=== PATIENT | male | born 2000 | race Hispanic/Latino ===

== ENCOUNTER 2018-02-12 22:59 | Emergency (ER) | payer OTHER, SELFPAY ==
--- OUTSIDE RECORDS SUMMARY | 2018-02-12 23:02 | XMS REPORT ---
:2000 Author Organization e[employer] Care Team Providers Name Role Phone Tenorio, Na Provider Role Unavailable Allergies, Adverse Reactions, Alerts Substance Reaction Event Type N.K.D.A. 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 Problem Acne vulgaris L70.0 Active Problem Blepharitis H01.009 Active Medications Medication Code Code Instructions Start End Status Dosage System Date Date Flonase [facility] 31259632476 50 MCG/ACT Active 1 spray in Nasally Once a each nostril day Ventolin HFA [facility] 60740364644 108 (90 Base) Active 2 puffs as MCG/ACT needed Inhalation every 6 hrs Claritin [facility] 28480654019 10 MG Orally Active 1 tablet Once a day Singulair [facility] 26131785261 10 MG Orally Active 1 tablet in Once a day the evening Doxycycline ND 38711231557 100 MG Orally July Active 1 capsule Monohydrate every 12 hrs 2017 Triamcinolone [facility] 65410059413 0.1 % May Active 1 application Acetonide Externally 06, to affected Twice a day 2017 area Results No Known Results Summary Purpose eClinicalWorks Submission
--- OUTSIDE RECORDS SUMMARY | 2018-02-12 23:02 | XMS REPORT ---
:2000 Author Organization [employer] Care Team Providers Name Role Phone Tenorio, Na Provider Role Unavailable Allergies, Adverse Reactions, Alerts Substance Reaction Event Type N.K.D.A. Info Not Available Non Drug Allergy Problems Problem Type Condition Code Onset Dates Condition Status Assessment Vaccine for human papilloma virus Z23 Active (HPV) types 6, 11, 16, and 18 administered Assessment Encntr for routine child health Z00.129 Active exam w/o abnormal findings Problem Asthma J45.909 Active Problem Abnormal EKG R94.31 Active Problem Allergic rhinitis J30.9 Active Problem Viral warts B07.9 Active Problem Acne vulgaris L70.0 Active Problem Blepharitis H01.009 Active Medications Medication Code Code Instructions Start End Status Dosage System Date Date Claritin [facility] 59728891980 10 MG Orally Dec Active 1 tablet Once a day 2017 Doxycycline ND 53491605824 100 MG Orally Active 1 capsule Hyclate twice a day Singulair ND 16445938214 10 MG Orally Active 1 tablet in Once a day the evening Triamcinolone ND 25069753693 0.1 % Active 1 application Acetonide Externally to affected Twice a day area Flonase ND 13484138061 50 MCG/ACT Active 1 spray in Nasally Once a each nostril day Ventolin HFA ND 50702605642 108 (90 Base) Active 2 puffs as MCG/ACT needed Inhalation every 6 hrs Results No Known Results Immunizations Vaccine Administration Date HPV Sep 29, 2017 Summary Purpose eClinicalWorks Submission
--- OUTSIDE RECORDS SUMMARY | 2018-02-12 23:02 | XMS REPORT ---
:2000 Author Organization [employer] Care Team Providers Name Role Phone Tenorio, Na Provider Role Unavailable Allergies, Adverse Reactions, Alerts Substance Reaction Event Type N.K.D.A. Info Not Available Non Drug Allergy Problems Problem Type Condition Code Onset Dates Condition Status Assessment Vaccine for human papilloma virus Z23 Active (HPV) types 6, 11, 16, and 18 administered Problem Asthma J45.909 Active Problem Abnormal EKG R94.31 Active Problem Allergic rhinitis J30.9 Active Problem Viral warts B07.9 Active Problem Acne vulgaris L70.0 Active Problem Blepharitis H01.009 Active Medications Medication Code Code Instructions Start End Status Dosage System Date Date Claritin [facility] 84810359151 10 MG Orally Dec Active 1 tablet Once a day 2017 Flonase ND 23136193223 50 MCG/ACT Active 1 spray in Nasally Once a each nostril day Singulair ND 74783276675 10 MG Orally Active 1 tablet in Once a day the evening Triamcinolone ND 00154190953 0.1 % Active 1 application Acetonide Externally to affected Twice a day area Doxycycline ND 94123849235 100 MG Orally Active 1 capsule Hyclate twice a day Ventolin HFA ND 82309823974 108 (90 Base) Active 2 puffs as MCG/ACT needed Inhalation every 6 hrs Results No Known Results Immunizations Vaccine Administration Date Gardasil, HPV 9-valent, IM Nov 30, 2017 Summary Purpose eClinicalWorks Submission
--- OUTSIDE RECORDS SUMMARY | 2018-02-12 23:02 | XMS REPORT ---
:2000 Author Organization [employer] Care Team Providers Name Role Phone Tenorio, Na Provider Role Unavailable Allergies, Adverse Reactions, Alerts Substance Reaction Event Type N.K.D.A. 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 Assessment White coat syndrome without R03.0 Active diagnosis of hypertension Problem Asthma J45.909 Active Problem Abnormal EKG R94.31 Active Problem Allergic rhinitis J30.9 Active Problem Viral warts B07.9 Active Assessment Acne vulgaris L70.0 Active Problem Acne vulgaris L70.0 Active Problem Blepharitis H01.009 Active Medications Medication Code Code Instructions Start End Status Dosage System Date Date Claritin [facility] 53701016704 10 MG Orally Dec Active 1 tablet Once a day 2017 Flonase ND 19228123519 50 MCG/ACT Active 1 spray in Nasally Once a each nostril day Triamcinolone ND 62969196920 0.1 % Active 1 application Acetonide Externally to affected Twice a day area Ventolin HFA ND 17723575322 108 (90 Base) Active 2 puffs as MCG/ACT needed Inhalation every 6 hrs Doxycycline ND 83860126743 100 MG Orally Active 1 capsule Hyclate twice a day Singulair ND 07733429559 10 MG Orally Active 1 tablet in Once a day the evening Results No Known Results Summary Purpose eClinicalWorks Submission
--- NOTE | 2018-02-12 23:30 | ER ---
Nurse's Notes [facility] Name: Lewis Pandey Age: 17 yrs Sex: Male : 2000 Arrival Date: 02/12/2018 Time: 23:04 Bed 20 Private MD: Diagnosis: Tinea pedis-left foot Presentation: 02/12 23:29 Presenting complaint: Patient states: Left foot redness and swelling since 3 days. cc3 Transition of care: patient was not received from another setting of care. Onset of symptoms was February 09, 2019. Risk Assessment: Do you want to hurt yourself or someone else? Patient reports no desire to harm self or others. Initial Sepsis Screen: Does the patient meet any 2 criteria? No. Patient's initial sepsis screen is negative. Does the patient have a suspected source of infection? No. Patient's initial sepsis screen is negative. Care prior to arrival: None. 23:29 Method Of Arrival: Ambulatory cc3 23:29 Acuity: JAGDISH 4 cc3 Triage Assessment: 23:29 General: Appears in no apparent distress. comfortable, Behavior is calm, cooperative, cc3 appropriate for age. Pain: Complains of pain in dorsum of left foot. Historical: - Allergies: 23:29 No Known Allergies; cc3 - PMHx: 23:29 seasonal allergies; cc3 - PSHx: 23:29 None; cc3 - Immunization history:: Adult Immunizations not up to date. - Social history:: Smoking status: Patient/guardian denies using tobacco, never smoked. - Ebola Screening: : No symptoms or risks identified at this time. Screenin:29 Abuse screen: Denies threats or abuse. Denies injuries from another. Nutritional cc3 screening: No deficits noted. Tuberculosis screening: No symptoms or risk factors identified. Fall Risk Ambulatory Aid- None/Bed Rest/Nurse Assist (0 pts). Gait- Normal/Bed Rest/Wheelchair (0 pts) Mental Status- Oriented to own ability (0 pts). Assessment: 23:29 General: see triage assessment. cc3 23:50 Reassessment: Patient appears in no apparent distress at this time. Patient and/or cc3 family updated on plan of care and expected duration. Pain level reassessed. Patient is alert, oriented x 3, equal unlabored respirations, skin warm/dry/pink. PA Page discharged the patient home with prescription given. No IV cannula in situ. Patient left ER vitally stable and ambulatory with his parents. Vital Signs: 23:29 BP 159 / 97; Pulse 80; Resp 18 S; Temp 99(O); Pulse Ox 95% on R/A; Weight 68.95 kg (R); cc3 Height 5 ft. 8 in. (172.72 cm) (R); 23:29 Body Mass Index 23.11 (68.95 kg, 172.72 cm) cc3 ED Course: 23:04 Patient arrived in ED. ag3 23:08 Leodan Herron PA is PHCP. cp 23:08 Leodan Cooper MD is Attending Physician. cp 23:29 Patient has correct armband on for positive identification. Bed in low position. Call cc3 light in reach. Side rails up X 1. Pulse ox on. NIBP on. 23:29 Arm band placed on right wrist. cc3 23:31 Triage completed. cc3 23:50 No provider procedures requiring assistance completed. Patient did not have IV access cc3 during this emergency room visit. Administered Medications: No medications were administered Outcome: 23:29 Discharge ordered by . cp 23:50 Discharged to home ambulatory, with family. cc3 23:50 Condition: stable 23:50 Discharge instructions given to patient, family, Instructed on discharge instructions, follow up and referral plans. medication usage, Demonstrated understanding of instructions, follow-up care, medications, Prescriptions given X 1. 23:51 Patient left the ED. cc3 Signatures: Leodan Herron PA PA cp Cordel, Charlene cc3 Enedelia Espinoza ag3
--- NOTE | 2018-02-12 23:30 | EDPHYS ---
Physician Documentation [facility] Name: Lewis Pandey Age: 17 yrs Sex: Male : 2000 Arrival Date: 02/12/2018 Time: 23:04 Bed 20 Private MD: ED Physician Leodan Cooper HPI: 02/12 23:23 This 17 yrs old Male presents to ER via Unassigned with complaints of Foot cp Pain. 23:23 The patient presents with a rash, draining, erythematous. The complaints affect the cp dorsum of left foot. Context: resulted from an unknown cause. Onset: The symptoms/episode began/occurred 2 week(s) ago, and became worse today. Associated signs and symptoms: Pertinent positives: rash, swelling, Pertinent negatives fever, warmth. Treatment prior to arrival includes: no previous treatment. Historical: - Allergies: 23:29 No Known Allergies; cc3 - PMHx: 23:29 seasonal allergies; cc3 - PSHx: 23:29 None; cc3 - Immunization history:: Adult Immunizations not up to date. - Social history:: Smoking status: Patient/guardian denies using tobacco, never smoked. - Ebola Screening: : No symptoms or risks identified at this time. ROS: 23:25 Constitutional: Negative for body aches, chills, fever, poor PO intake. cp 23:25 Skin: Positive for erythema, rash, swelling, of the dorsum of left foot. 23:25 All other systems are negative. Exam: 23:25 Head/Face: Normocephalic, atraumatic. cp 23:25 Constitutional: The patient appears in no acute distress, alert, awake, non-toxic, well developed, well nourished. 23:25 Skin: rash can be described as interdigital maceration, scale, mild erythema and swelling, consistent with tinea. Vital Signs: 23:29 BP 159 / 97; Pulse 80; Resp 18 S; Temp 99(O); Pulse Ox 95% on R/A; Weight 68.95 kg (R); cc3 Height 5 ft. 8 in. (172.72 cm) (R); 23:29 Body Mass Index 23.11 (68.95 kg, 172.72 cm) cc3 MDM: 23:08 Patient medically screened. cp 23:10 Differential diagnosis: tinea pedis, cellulitis, abscess. cp 23:29 Data reviewed: vital signs, nurses notes, and as a result, I will discharge patient. cp 23:29 Counseling: I had a detailed discussion with the patient and/or guardian regarding: the cp historical points, exam findings, and any diagnostic results supporting the discharge/admit diagnosis, to return to the emergency department if symptoms worsen or persist or if there are any questions or concerns that arise at home. Administered Medications: No medications were administered Disposition: 23:55 Chart complete. cp Disposition: 02/12/18 23:29 Discharged to Home. Impression: Tinea pedis - left foot. - Condition is Stable. - Discharge Instructions: Athlete's Foot. - Prescriptions for Clotrimazole 1 % Topical Cream - Apply to affected area 1 application by TOPICAL route every 12 hours for 14 days; 30 gram. - Medication Reconciliation Form, Thank You Letter, Antibiotic Education, Prescription Opioid Use form. - Follow up: Private Physician; When: 1 week; Reason: rash continues. - Problem is new. - Symptoms are unchanged. Addendum: 02/23/2018 10:54 Co-signature as Attending Physician, Leodan Cooper MD I agree with the assessment and c erazo plan of care. Signatures: Leodan Cooper MD MD cha Page, Corey, PA PA Kaylah Ruby cc3 Corrections: (The following items were deleted from the chart) 02/12 23:51 23:29 02/12/2018 23:29 Discharged to Home. Impression: Tinea pedis - left foot. cc3 Condition is Stable. Forms are Medication Reconciliation Form, Thank You Letter, Antibiotic Education, Prescription Opioid Use. Follow up: Private Physician; When: 1 week; Reason: rash continues. Problem is new. Symptoms are unchanged. cp
== END 2018-02-12 23:51 | disposition home or self-care (01) ==
LOC: ER 22:59
DX: B35.3 Tinea pedis (principal)
CPT/HCPCS: 99283